=== PATIENT | female | born 2000 | race Caucasian/White ===

== ENCOUNTER 2022-09-24 04:59 | Emergency (ER) | payer OTHER, SELFPAY ==
[2022-09-24 05:02] VITALS: BP 156/88; PULSE 87; RESP 16; TEMP 36.6; O2SAT 100; BMI 33.4
--- NOTE | 2022-09-24 05:47 | EX.ED.VIS.UR ---
HPI HPI - URI History of Present Illness Chief Complaint: Cold Sx Detail of Chief Complaint: Right earache. Informant: patient Onset/Context/Timing Onset: Days Context: Gradual Onset Timing: Continuous Current Severity: Mild Maximum Severity: Mild Associated Symptoms Associated Symptoms: Negative for Diarrhea, Shortness of Breath, Chest Pain or Nonproductive cough Narrative Narrative: 22-year-old female no [place]best[place] medical or surgical history. Has had right earache since Saturday. She was seen by her primary care physician Dr. Nobles who started her on amoxicillin. She 69 took the amoxicillin she thought her right side of her face was swelling so she stopped taking it. She denies any rash or itching. Still having right ear pain. No fever. No shortness of breath. No significant cough. Prior similar symptoms: No Recent Illness/Hospitalization: No ROS ROS ED ROS Narrative Right ear ache. Review of Systems ROS Unobtainable: Denies due to encephalopathy Constitutional Constitutional ED: Denies chills or fever(s) Eyes Eyes: Denies blurry vision ENT ENT ED: Reports ear pain, rhinorrhea and sore throat Cardiovascular Cardiovascular: Denies chest pain Respiratory/Chest Respiratory/Chest: Denies cough or dyspnea Gastrointestinal Gastrointestinal: Denies abdominal pain Genitourinary Genitourinary ED: Denies dysuria or hematuria Musculoskeletal Musculoskeletal: Denies arthralgias Integumentary Denies abscess Neurologic Neurologic: Denies headache(s) Psychiatric Psychiatric: Denies anxiety Endocrine Endocrinology: Denies cold intolerance Hematologic/Lymphatic Hematologic/Lymphatic: Denies easy bleeding Allergic/Immunologic Allergic/Immunologic ED: Denies mouth swelling or tongue swelling PFSH PFSH Medical History no medical history no medical history Home Medications azithromycin 250 mg tablet (Zithromax) 250 mg PO DAILY 4 days #4 tabs 09/24/22 [Rx Last Taken Unknown] Allergy/AdvReac Type Severity Reaction Status Date / Time amoxicillin Allergy Swelling Verified 09/24/22 05:01 diphenhydramine AdvReac Rash Verified 09/24/22 05:01 [From Benadryl] Surgical History no surgical history no surgical history Social History Smoking Status: Never smoker EXAM Physical Exam Narrative Exam Narrative: 19-year-old female no acute distress. Vital signs stable afebrile. Pulse ox 100% on room air no signs hypoxia. She does not look septic toxic or dehydrated. H EENT exam left TM normal. Posterior pharynx normal. No redness. No exudate. No trouble swallowing or breathing. Right TM erythematous dull with fluid behind the eardrum. Canal unremarkable. Eustachian tube tenderness. No anterior or posterior lymphadenopathy. Trachea midline. Lungs clear. Heart regular rhythm. Abdomen soft nontender. Otherwise exam unremarkable. Well-appearing. Const Vital Signs: 09/24/22 05:02 09/24/22 05:04 Temperature 97.8 F Temperature Source Temporal Pulse Rate 87 Respiratory Rate 16 Respiratory Effort Normal Respiratory Pattern Normal Blood Pressure 156/88 H Blood Pressure Mean 110 Pulse Ox 100 Oxygen Delivery Method Room Air Positive well nourished and well developed; Negative for cachectic or contractures General Appearance ED: well developed and NAD; Negative for cachectic, contractures, cyanotic, diaphoretic or pallor Nutritional Appearance: Negative for cachectic HEENT Reports moist mucous membranes; Denies dry mucous membranes HEENT Narrative: Right TM dull, red with fluid behind it. Canal normal. normocephalic and atraumatic; Negative for scalp tenderness Face and Sinus: Negative for sinus tenderness, maxillary instability or facial tenderness Mouth ED: No dry mucous membranes Mouth: No dry mucous membranes Teeth and Gingiva: Negative for caries Throat: posterior oropharynx normal; Negative for tonsils abnormal or posterior oropharynx abnormal Eyes PERRL and EOMs intact bilaterally General Eye ED: Negative for pale conjunctiva or scleral icterus Neck no lymphadenopathy, supple, no meningeal signs and no JVD General: Negative for anterior neck swelling or lymphadenopathy Resp normal respiratory effort and clear to auscultation bilaterally Effort and Inspection: Negative for retractions Auscultation: Negative for rales, rhonchi or wheezes Cardio S1 normal heart sound, S2 normal heart sound and no murmurs Rate: regular rate Rhythm: regular rhythm GI non-tender, non-distended and no masses Inspection: Negative for abdominal distention Auscultation: normoactive bowel sounds Palpation: soft; Negative for tender or guarding Back/Spine no CVA tenderness and normal ROM General Back: Negative for CVA tenderness Cervical Spine: Negative for cervical spine tenderness Thoracic Spine / Upper Back: Negative for thoracic spinal tenderness Lumbar Spine / Lower Back: Negative for lumbar spinal tenderness Sacrum: Negative for tenderness Extremity normal to inspection and full ROM General Extremety ED: Negative for cyanosis or tenderness General Extremity: Negative for cyanosis Neuro oriented x3 and CN's II-XII intact bilaterally Sensorium / Orientation: alert, oriented to person, oriented to place and oriented to time; Negative for orientation impaired, lethargic or stuporous Motor Exam: strength 5/5 throughout; Negative for general weakness Psych mental status grossly normal Appearance: Negative for other Attitude: No agitated Mood & Affect: Negative for depressed, anxious or tearful Skin General Skin Exam: Negative for jaundice or pallor Lesions: no lesions Rashes: no rashes Trauma: Negative for abrasion or laceration MDM MDM MDM Narrative Medical decision making narrative: 22-year-old with right otitis media thinks she may have had a reaction with facial swelling to amoxicillin so she stopped taking it. She will be started on Zithromax first dose given here 500 mg p.o. and 1 daily starting on Saturday. Follow-up with not improving. History & Record Review Discussion w/independent historian: Patient and Significant other Discharge Plan Triage Chief Complaint: Cold Sx ED Provider: Boy Gerard Dx/Rx/DC Orders Clinical Impression: Acute right otitis media Instructions: ED Otitis Media Antibiotic ... Prescriptions: New azithromycin [Zithromax] 250 mg tablet 250 mg PO DAILY 4 Days Qty: 4 0RF Rx Instructions: start on day 2 of therapy Primary Care Provider: Edward Nobles Referrals: Edward Nobles DO [Primary Care Provider] - 1 Week if not improving Activity Restrictions/Additional Instructions: Stop the amoxicillin in case you have an allergy to it. Motrin and Tylenol for pain The antibiotic Zithromax 1 pill a day starting on Saturday for 4 more days. First dose given here in the ER. Follow-up with your doctor if not improving. Disposition Disposition: Home, Self Care
[2022-09-24] MEDS: Azithromycin 250 MG Tablet 500 MG PO (05:51)
== END 2022-09-24 06:07 | disposition home or self-care (01) ==
PROVIDERS: Emergency Provider Emergency Medicine; PCP Family Medicine; Visit Provider Emergency Medicine
DX: H66.91 Otitis media, unspecified, right ear (principal)
CPT/HCPCS: 99283

== ENCOUNTER → 2023-01-16 | Outpatient (CLI) | payer SELFPAY ==
[2023-01-16 19:13] LABS: Hematocrit 39.6 % (37-47); Hemoglobin 12.9 g/dL (12.0-15.0); Mean Corp Hgb Conc 32.6 g/dL (32-36); Mean Corpuscular Hgb 27.7 pg (27.0-32.0); Mean Corpuscular Volume 85.2 fL (81-99); Mean Platelet Vol. 9.5 fl (6.2-12.0); Platelet Count 253 K/mm3 (150-450); RBC Distribution Width CV 11.9 % (11.6-14.6); RBC Distribution Width SD 36.7 fl (35.1-43.9); Red Blood Count 4.65 M/mm3 (4.2-5.4); White Blood Count 6.9 K/mm3 (4.4-11.0)
[2023-01-16 19:33] LABS: ALB/GLOB Ratio 0.9 RATIO (0.9-2.4); AST(SGOT) 35 U/L (15-37); Alanine Aminotransfer ALT/SGPT 71 U/L (13-56); Albumin, Serum 3.8 g/dL (3.2-5.0); Alkaline Phosphatase 61 U/L (45-117); Anion Gap 5 (5-15); BUN 9 mg/dL (7-18); BUN/Creat Ratio 12.3 RATIO (10-20); Calcium,Total 9.3 mg/dL (8.5-10.1); Chloride 105 mmol/L (98-107); Creatinine, Serum 0.73 mg/dL (0.55-1.02); EST Glomerular Filtration Rate 104 mL/min (>60); Est Glom Filt Rate - Afr Amer 126 mL/min (>60); Globulin 4.1 g/dL (2.2-4.2); Glucose 96 mg/dL (74-106); Potassium 4.2 mmol/L (3.5-5.1); Protein, Total 7.9 g/dL (6.4-8.2); Sodium Level 137 mmol/L (136-145)
== END | disposition home or self-care (01) ==
LOC: LAB 18:48
PROVIDERS: PCP Family Medicine; Visit Provider Family Medicine
DX: R10.30 Lower abdominal pain, unspecified (principal)
CPT/HCPCS: 36415; 80053; 85027; 86140

== ENCOUNTER → 2023-01-31 | Outpatient (CLI) | payer SELFPAY ==
--- NOTE | 2023-01-31 08:24 | CT_ITS ---
STUDY: CT ABDOMEN AND PELVIS WITH CONTRAST REASON FOR EXAM: Female, 22 years old. R ADENOMA MASS ON US. Abnormal liver function tests. RADIATION DOSAGE (If Supplied By Facility): CTDIvol = ( 14.93 ) mGy, DLP = ( 1150.26 ) mGycm TECHNIQUE: Transaxial images were obtained from the dome of the diaphragm to the symphysis pubis without oral contrast. Oral and amp; IV Readi-CAT and amp; 100mL Isovue-300 was administered. Sagittal and coronal images were reconstructed. Individualized dose optimization techniques were used for this CT. COMPARISON: None. FINDINGS: The visualized lung bases are unremarkable. The visualized portions of the heart are within normal limits. Normal liver. Normal gallbladder and extrahepatic biliary system. Normal spleen. Normal pancreas. Normal bilateral adrenal glands. Normal right kidney. Normal left kidney. Normal visualized stomach. Normal small intestine. Normal colon. The appendix is visualized and appears normal. Normal abdominal aorta. Normal inferior vena cava. Normal retroperitoneum. Normal urinary bladder. There is a 3.7 cm x 4.1 cm fat-containing mass in the right adnexa suggestive of a dermoid cyst. Focal calcification is seen along its anterior margin. Normal abdominal wall. Normal osseous structures. CT/Abdomen/Pelvis WITH Contrast IMPRESSION: Findings suggestive of a 3.7 cm x 4.1 cm dermoid in the right adnexa. Electronically Signed: Solis Araiza MD at 11:06 EDT ,
== END | disposition home or self-care (01) ==
LOC: CT 08:01
PROVIDERS: PCP Family Medicine; Referring Provider Family Medicine; Visit Provider Family Medicine
DX: R19.09 Other intra-abdominal and pelvic swelling, mass and lump (principal); R10.30 Lower abdominal pain, unspecified
CPT/HCPCS: 74177; Q9967

== ENCOUNTER → 2023-03-18 | Outpatient (CLI) | payer SELFPAY ==
[2023-03-18 13:31] LABS: T4 Free Direct 0.97 ng/dL (0.76-1.46)
[2023-03-22 06:09] LABS: 17-Hydroxyprogesterone 99 ng/dL (.)
== END | disposition home or self-care (01) ==
LOC: LAB 12:16
PROVIDERS: PCP Family Medicine; Referring Provider Obstetrics & Gynecology; Visit Provider Obstetrics & Gynecology
DX: L68.0 Hirsutism (principal)
CPT/HCPCS: 36415; 82627; 83498; 84439; 82626

== ENCOUNTER 2023-04-04 10:36 | Outpatient (CLI) | payer SELFPAY ==
[2023-04-04 11:06] LABS: Hemoglobin 13.7 g/dL (12.0-15.0); Mean Corp Hgb Conc 32.6 g/dL (32-36); Mean Corpuscular Hgb 27.7 pg (27.0-32.0); Mean Platelet Vol. 9.2 fl (6.2-12.0); Platelet Count 348 K/mm3 (150-450); RBC Distribution Width SD 37.2 fl (35.1-43.9); Red Blood Count 4.94 M/mm3 (4.2-5.4); White Blood Count 7.1 K/mm3 (4.4-11.0)
== END 2023-04-04 23:59 | disposition home or self-care (01) ==
LOC: PAVLAB 10:37
PROVIDERS: PCP Family Medicine; Referring Provider Obstetrics & Gynecology; Visit Provider Obstetrics & Gynecology
DX: Z01.818 Encounter for other preprocedural examination (principal)
CPT/HCPCS: 36415; 85027; 86850; 86900; 86901

== ENCOUNTER 2023-05-28 09:35 | Day surgery (SDC) | payer SELFPAY ==
--- NOTE | 2023-05-26 10:40 | CYST_PTH ---
PATHOLOGY RESULTS PATIENT: BENSON PALACIOS LOC: [facility] U#:[id number] AGE/SX: ROOM: RE05/28/[address]: Dr. Beatrice Hi MD : 2000 BED: DIS: 05/28/2023 SPEC #: [id number] RECD: 05/28/23 13:46 STATUS: SUSAN BUSTILLO #: [id number] MUSTAPHA: 05/26/23 10:[address]: Beatrice Hi DEPT: SURGICAL PATHOLOGY RECD BY: Nena Guillen ENTERED: 05/28/23 13:46 SP TYPE: Cyst OTHR DR: Dr. Pantera Villela, Tissues: CYST Procedures: Surgery Specimen Level V HEADER OPERATION: Laparoscopic ovarian cystectomy PRE-OP DIAGNOSIS: Dermoid cyst, polycystic ovarian syndrome TISSUE SUBMITTED: Right ovarian cyst MICROSCOPIC DIAGNOSIS Right ovarian cyst, cystectomy: Mature cystic teratoma (dermoid cyst). AM:kendall 05/29/2023 MICROSCOPIC DESCRIPTION Slides are reviewed. GROSS DESCRIPTION Received in fixative is one container labeled with the patient's name and designated right ovarian cyst. The specimen consists of a previously, partially ruptured cyst measuring 4.5 x 2.5 x 1.5 cm and weighs 7.1 gm. The outer surface is smooth. The cyst is filled with multiple hair. The cyst wall measures 0.1 to 0.3 cm in thickness. No area of bone formation is noted. Wind Turbine Electrical Engineer sections are submitted in three cassettes. / SJ:kendall 05/28/2023 TC:1 CPT: 16486
[2023-05-28] VITALS (8 sets, daily range): BP systolic 108–145; BP diastolic 65–85; PULSE 74–118; RESP 16; TEMP 36.3–37.1; O2SAT 92–100; BMI 33.2
[2023-05-28] MEDS: Lactated Ringers 1,000 ML 15 ML IV (09:58)
[2023-05-28 10:06] LABS: Internal QC Validated? YES +Cl - CLEAR BKGD; Pregnancy, Urine Negative Negative
--- NOTE | 2023-05-28 11:12 | HP.PCM_ITS ---
History and Physical Date of Admission: 05/28/23 Intake Vital Signs 03/18/2311:50 04/04/2309:38 04/04/2309:38 Height 5 ft 9 in 5 ft 9 in 5 ft 9 in Weight: 226 lb BMI 33.3 BP 138/77 H Intake Visit Reasons: right ovarian cystectomy Customer Equipment Engineer Required: No Is patient in pain?: No Allergies amoxicillin Allergy (Verified 04/04/23 09:38) throat swellingdiphenhydramine [From Benadryl] Adverse Reaction (Verified 04/04/23 09:38) Rash Medications NK 03/29/23 [History Confirmed 04/04/23] Is last menstrual period known: Yes Post menopausal: No Patient : No : No [facility] Medical History (Updated 04/04/23 @ 12:[address] Beatrice Hi MD) Anxiety and depression Chest pain Migraine headache Non-smoker Wears contact lenses Wears glasses Social History (Updated 03/18/23 @ 11:50 by Deandra Manzano) Smoking Status: Never smoker alcohol intake: never substance use type: does not use caffeine: No what type of physical activity do you participate in: none seatbelt use: always do you feel safe at home: Yes additional social history: - Rd HPI right ovarian cystectomy Details: BENSON PALACIOS is a 22 year old who presents for preop has 4 cm dermoid right ovarian cyst planning removal Female Reproductive History Menopausal Symptoms: Yes night sweats History 0 Elective abortions Hx Para Spontaneous abortions Hx # Term Pregnancies Ectopic pregnancies Hx # Pregnancies Multiple births # of living children ROS Const Constitutional: Reports night sweats; Denies fatigue, weight gain or weight loss ENT ENT: Reports system reviewed and no additional complaints, except as documented Cardio Card: Denies chest pain Resp Resp: Reports cough (daily cough); Denies dyspnea GI GI: Reports as per HPI, abdominal pain and nausea; Denies constipation or vomiting : Denies nipple discharge, urinary frequency, urinary incontinence, urinary hesitancy, urinary urgency, vaginal discharge, vaginal dryness, vaginal odor or vaginal pruritus Musc Musc: Denies arthralgias, back pain or muscle weakness Skin Skin/Breast: Denies alopecia, change in hair, dry skin, breast mass, breast pain, breast skin changes or nipple discharge Neuro Neuro: Reports system reviewed and no additional complaints, except as documented Psych Psych: Reports system reviewed and no additional complaints, except as documented Endo Endo: Reports cold intolerance and polydipsia; Denies excessive sweating or heat intolerance Slick/Lymph Hematologic/Lymphatic: Denies easy bleeding, Denies easy bruising and Denies lymphadenopathy Exam Const General: cooperative, healthy appearing, comfortable and no acute distress Orientation: alert HENMT Head: normal to inspection and normocephalic Ears: hearing grossly normal bilaterally and external ears normal Nose: external nose normal and nares normal Face and sinus: normal facial exam Neck Neck: normal visual inspection and no lymphadenopathy Thyroid: thyroid normal Chest Chest palpation & inspection: normal inspection of the chest Resp Effort & Inspection: normal respiratory effort Auscultation: clear to auscultation bilaterally Cardio Rate: regular rate Rhythm: regular rhythm Heart Sounds: S1 normal and S2 normal GI Inspection: normal to inspection and non-distended Palpation: soft and no hepatosplenomegaly Musc Other: gross motor intact no deficits, full bilateral strength Skin General: no rashes or lesions noted Neuro General: patient alert, patient awake, moves all extremities and no focal motor deficits Motor: muscle tone normal throughout Extrem General: normal to inspection and no pedal edema Psych Appearance: grossly normal Mental Status: mental status grossly normal Affect: normal affect Speech and Movement: speech and movement normal Coding Level of Care Code No Charge Diagnoses Dermoid cyst D36.9 Polycystic ovarian syndrome E28.2 Assessment and Plan Assessment and Plan (1) Dermoid cyst: Status: Acute Comment: plan laparoscopic ovarian cystectomy (2) Polycystic ovarian syndrome: Status: Acute Comment: desired exp management, weight reduction, natural support Plan After discussing the patient's diagnosis and treatment plan options, patient wishes to proceed with surgical management. I have discussed with the patient the risks, benefits, and alternatives of the procedure which include but are not limited to risks of anesthesia, bleeding, infection, possible damage to bowel, bladder, or surrounding vasculature which could lead to additional surgery to evaluate any complications. Patient agrees to procedure and wishes to proceed. ACOG/uptodate references given for additional information regarding procedure. 04/04/23 1221 <Electronically signed by Beatrice Hi MD> Date Beatrice Garcia Signature: Date (if applicable) CC: ~ UPDATE- I have seen the patient and performed any clinically relevant updates to the history and physical exam. Beatrice Hi MD
[2023-05-28] MEDS: Bupivacaine 0.25% 30 ML Vial (12:15)
--- NOTE | 2023-05-28 12:27 | DCINST_ITS ---
Discharge Instructions Diet Discharge Diet: No restrictions Activity Discharge Activity: Return to Normal Activity, May Not Drive (for 2 weeks or while taking narcotic pain meds.), May Shower and May Take a Tub Bath (in 7 days) May resume sexual activity in: 1 week Weight Bearing Status: Full weight bearing Dressing / Incision Call your doctor if your incision/area has: Continuous Slow Oozing, Sudden Increased Bleeding, Increased Pain/ Swelling, Increased Redness and Foul Smelling Discharge Call your doctor if you observe: Fever of 101 or Higher, Using more than 1 pad per hour, Shortness of breath, Chest pain and Uncontrolled pain Suture Line Care: Avoid Pulling/Pushing and Avoid Pinching/Bending Remove Dressing in: 1 week (if present) Cleanse incision/area with: Soap & Water and Keep Dressing Clean & Dry Follow Up Care When: Call to make an appointment with your doctor for a fu/incision check in 1- 2 weeks. Test Results: Test results from this visit will be discussed in further detail at your follow- up appointment, if applicable. Discharge Plan Admission Attending Provider: Beatrice Hi Primary Care Provider: Pantera Villela Discharge Orders/Prescriptions Prescriptions: New oxycodone-acetaminophen [Percocet] 5-325 mg tablet 1 tab PO Q6H PRN (Reason: pain) 7 Days Qty: 10 0RF naproxen [naproxen] 500 mg tablet 500 mg PO BID PRN PRN (Reason: Pain) Qty: 30 1RF Referrals / Follow Up: Pantera Villela DO [Primary Care Provider] - Disposition Disposition (needs filled in before D/C Order can be placed): Home, Self Care
--- NOTE | 2023-05-28 12:27 | OP.PCM_ITS ---
Problems Associated Problem List Diagnoses (1) S/P ovarian cystectomy: (2) Polycystic ovarian syndrome: (3) Dermoid cyst: Report of Operation Date of Procedure: 05/28/23 Pre-Operative Diagnosis: see problem list Post-Operative Diagnosis: same Surgery/Procedure Performed:: laparoscopic right ovarian cystectomy Description of Surgical Findings:: right enlarged ovary with hair and sebaceous material Surgeon: Beatrice Hi security field supervisor: Austin Goyal Type of Anesthesia: General and Local Special Medications: floseal Specimen's removed: ovarian cyst Drains: none Estimated Blood Loss (mL): 50 Fluids Replaced: crystalloid Description of Procedure: Patient was taken in the operating room and was placed under general anesthesia was prepped and draped in normal sterile fashion in the dorsal lithotomy position. Bladder was drained of clear urine and SCDs were on preoperatively. Uterus was sounded and a uterine manipulator was placed after dilating. Attention was then paid to the abdominal portion of the procedure and the umbilicus was elevated with towel clamps and injected with Marcaine and after a 5mm incision was made and the Veress needle was entered into the abdomen confirmed to be intra-abdominal with a low opening pressure of less than 5 mmHg. Abdomen was insufflated with CO2 gas and a 5 mm optical trocar was placed under direct visualization. A right and left lower quadrant 5 mm ports were placed under direct visualization. Right ovary was noted to be enlarged with a cyst noted which was incised across with the monopolar scissors and sebaceous appearing material noted. The cyst was teased out from the underlying normal ovarian tissue without complication. The entire cyst wall and contents were removed and a 5 mm port bag through the left lower quadrant after enlarging the incision without complication. The right ovary was then noted to be within normal limits and the base cauterized for hemostasis and Floseal placed over the base of the ovary for hemostasis. The LLQ fascial incision was closed using the Vicente Laboy and an 0 Vicryl. Liver and upper abdomen were visualized notably within normal limits and no other gross abnormalities were seen in the abdomen. All instruments removed from the abdomen after gas was desufflated. Port sites were closed with 3-0 Monocryl Steri's and op sites were applied. All instruments removed from the vagina and patient was awoken and taken recovery in stable condition. Grafts/Implants Used: none Complications none Admit VTE Documentation VTE Present on Admission: No VTE Mechan Device Prophylaxis: SCD's Multi Select Codes Urinary/Genital Urinary/Genital CPT Codes: 12072 Laproscopic ablation endometriosis
[2023-05-28] MEDS: Oxycodone/Apap 5/325 Tablet PO (13:58)
== END 2023-05-28 16:00 | disposition home or self-care (01) ==
LOC: SDC 09:36 → AC 09:42
PROVIDERS: PCP Family Medicine; Referring Provider Obstetrics & Gynecology; Visit Provider Obstetrics & Gynecology
PROC: (CPT 58720; principal; 2023-05-28 10:30)
DX: D27.0 Benign neoplasm of right ovary (principal); E28.2 Polycystic ovarian syndrome; N95.1 Menopausal and female climacteric states
CPT/HCPCS: 58662; 00840; 81025; 86850; 86900; 86901; 88304; 88307; J7120; J2405

== ENCOUNTER → 2024-01-01 | Outpatient (CLI) | payer SELFPAY ==
[2024-01-01 15:54] LABS: hCG Titer Quant., Serum 15067 mIU/mL (1-3)
== END | disposition home or self-care (01) ==
LOC: LAB 14:04
PROVIDERS: PCP Family Medicine; Referring Provider Obstetrics & Gynecology; Visit Provider Obstetrics & Gynecology
DX: O20.9 Hemorrhage in early pregnancy, unspecified (principal); Z3A.00 Weeks of gestation of pregnancy not specified
CPT/HCPCS: 36415; 84702

== ENCOUNTER → 2024-01-17 | Outpatient (CLI) | payer SELFPAY ==
[2024-01-17 16:16] LABS: Absolute Lymphocyte Count 2.24 X10^3/uL (0.83-4.51); Absolute Neutrophil Count 5.9 X10^3/uL (2.0-7.7); Basophil# 0.02 X10^3/uL; Basophil% 0.2 % (0-1); Eosinophil# 0.08 X10^3/uL; Eosinophils% 0.9 % (0-5); Hemoglobin 12.3 g/dL (12.0-15.0); Lymphocyte # 2.24 X10^3/ul (0.83-4.51); Lymphocyte % 25.1 % (19-41); Mean Corp Hgb Conc 32.4 g/dL (32-36); Mean Corpuscular Hgb 27.3 pg (27.0-32.0); Mean Corpuscular Volume 84.3 fL (81-99); Mean Platelet Vol. 9.5 fl (6.2-12.0); Monocyte# 0.62 X10^3/uL; NRBC Flagged by Analyzer 0 % (0-5); Neutrophil # 5.94 X10^3/uL (2.7-7.7); Neutrophil % 66.6 % (47-70); Platelet Count 284 K/mm3 (150-450); RBC Distribution Width CV 11.9 % (11.6-14.6); RBC Distribution Width SD 36.3 fl (35.1-43.9); Red Blood Count 4.51 M/mm3 (4.2-5.4); White Blood Count 8.9 K/mm3 (4.4-11.0)
[2024-01-17 17:12] LABS: HIV - WCH Non-Reactive (Nonreactive); Hepatitis B Surface Antigen Non-Reactive (Nonreactive); Hepatitis C Antibody Non-Reactive (Nonreactive); Rubella IgG Reactive (Nonreactive); Syphilis Antibodies Non-reactive
[2024-01-17 17:30] LABS: Hemoglobin A1c 5.1 % (3.8-5.6)
[2024-01-20 20:07] LABS: Chlamydia By Nucleic Acid AMP Negative (Negative); Gonococcus By Nucleic Acid AMP Negative (Negative)
== END | disposition home or self-care (01) ==
PROVIDERS: PCP Family Medicine; Referring Provider Obstetrics & Gynecology; Visit Provider Obstetrics & Gynecology
DX: O09.90 Supervision of high risk pregnancy, unspecified, unspecified trimester (principal); Z3A.00 Weeks of gestation of pregnancy not specified
CPT/HCPCS: 36415; 83036; 85025; 86703; 86762; 86780; 86803; 86850; 86900; 86901; 87086; 87088; 87186; 87340; 87491; 87591

== ENCOUNTER 2024-07-05 11:39 | Inpatient (IN) | payer SELFPAY ==
[2024-07-04 16:58] VITALS: BMI 31.6
[2024-07-04] MEDS: Lactated Ringers 1,000 ML 999 ML IV (17:15)
[2024-07-04 17:16] VITALS: BP 130/64; PULSE 115
[2024-07-04 17:40] LABS: Hematocrit 28.6 % (37-47); Hemoglobin 9.5 g/dL (12.0-15.0); Mean Corp Hgb Conc 33.2 g/dL (32-36); Mean Corpuscular Hgb 27.5 pg (27.0-32.0); Mean Corpuscular Volume 82.9 fL (81-99); Mean Platelet Vol. 9.7 fl (6.2-12.0); Platelet Count 246 K/mm3 (150-450); RBC Distribution Width SD 42.4 fl (35.1-43.9); Red Blood Count 3.45 M/mm3 (4.2-5.4); White Blood Count 16.1 K/mm3 (4.4-11.0)
[2024-07-04 17:47] LABS: Color, Urine Yellow (Yellow); Glucose, Dipstick Normal (Normal); Leukocyte Esterase-Dipstick 500 /ul (Negative); Nitrite-Dipstick Negative (Negative); Occult Blood-Urine 50 /ul (Negative); Protein-Dipstick 100 mg/dl (Negative); Specific Gravity, Urine 1.005 (1.002-1.030); Urine Bilirubin Dipstick Negative (Negative); Urine Clarity Sl. Cloudy (Clear); Urine Urobilinogen Normal (Normal); Urine pH 6.5 (5.0 - 8.0)
[2024-07-04 17:52] LABS: Ketone-Dipstick 150 mg/dl (Negative)
[2024-07-04 17:55] LABS: Protein, Urine (Random) 97.1 mg/dL (<11.9); Protein:Creat Ratio 1006 mg/g CRE (0-200)
[2024-07-04 18:01] LABS: AST(SGOT) 12 U/L (15-37); Alanine Aminotransfer ALT/SGPT 15 U/L (13-56); Creatinine, Serum 0.67 mg/dL (0.55-1.02); EST Glomerular Filtration Rate 114 mL/min (>60); Est Glom Filt Rate - Afr Amer 137 mL/min (>60); Estimated Creatinine Clearance 149.25 ml/min; Uric Acid 4.5 mg/dL (2.6-6.0)
[2024-07-04] MEDS: Lactated Ringers 1,000 ML 125 ML IV (18:57)
[2024-07-04 19:21] VITALS: RESP 16; TEMP 37.2
[2024-07-04 19:27] VITALS: BP 118/62; PULSE 114; PULSE 116; O2SAT 97
[2024-07-04] MEDS: Aztreonam 2 GM in 0.9% Normal Saline (100mL MB+) 100 ML IV (19:47)
--- NOTE | 2024-07-04 19:47 | PCM.HP.OB ---
HPI - General General Date of Admission: 07/04/24 Date of Service: 07/04/24 Chief Complaint: fever, vomiting, back pain, 32 weeks . NO- DOC HPI Narrative BENSON SALMON, is a 24 y/o @ 32 weeks 3 days (by LMP and confirmed by 7 week ultrasound) who presents to L&D via her community development aide for the complaint of ongoing fevers, chills, nausea and vomiting and the complaint of right sided back pain. She was seen 1 or 2 times with our office and was dismissed for non-compliance with co-care. She is planning a home . [facility] Medical History (Updated 07/04/24 @ 19:[address] Nohemy Avitia, DO) UTI (urinary tract infection) in in first trimester Obesity affecting Family history of Down syndrome Supervision of high-risk Wears contact lenses Wears glasses Migraine headache Non-smoker Chest pain Anxiety and depression Home Medications ?Medication ?Instructions ?Recorded ?Last Taken ?Type docosahexaenoic acid 200 mg mg PO 01/01/24 Unknown History capsule ( DHA) mecobalamin (vitamin B12) 500 mcg mcg PO 01/01/24 Unknown History chewable tablet omega-3 fatty acids 1,000 mg 1,000 mg PO DAILY 01/01/24 Unknown History capsule vitamin D3 125 mcg (5,000 cap PO 01/01/24 Unknown History unit)-vitamin K2 100 mcg capsule cyanocobalamin-liver extract tablet tab PO 01/17/24 Unknown History fosfomycin tromethamine 3 gram 3 g PO ONCE #1 ea 01/20/24 Unknown Rx oral packet Allergy/AdvReac Type Severity Reaction Status Date / Time amoxicillin Allergy throat Verified 01/17/24 15:03 swelling diphenhydramine (From AdvReac Rash Verified 01/17/24 15:03 Benadryl) Surgical History (Updated 01/17/24 @ 15:[address] Beatrice Hi MD) History of excision of dermoid cyst S/P ovarian cystectomy Social History Smoking Status: Never smoker alcohol intake: never substance use type: does not use caffeine: No what type of physical activity do you participate in: none seatbelt use: always do you feel safe at home: Yes additional social history: - Rd History 1 Elective abortions Hx Para 0 Spontaneous abortions Hx # Term Pregnancies Ectopic pregnancies Hx # Pregnancies Multiple births # of living children ROS Constitutional Constitutional: Reports fatigue, fever(s) and headache(s); Denies change in weight, poor appetite or weakness Eyes Eyes: Denies blurry vision, change in vision, seeing flashes or spots in vision ENT HEENT: Reports headache(s); Denies dizziness, loss taste/smell or sore throat Cardiovascular Cardiovascular: Denies chest pain, dizziness, dyspnea, irregular heart rhythm, leg edema, palpitations, rapid heart rate or vomiting Respiratory/Chest Respiratory/Chest: Denies chest tightness, cough, dyspnea or breast pain Gastrointestinal Gastrointestinal: Reports anorexia, nausea and vomiting; Denies abdominal pain, change in stool character, constipation, cramping, diarrhea, hemorrhoids or weight changes Genitourinary Genitourinary: Reports urinary frequency and urinary urgency; Denies genital lesions or genital pain Musculoskeletal Musculoskeletal: Reports other Details: back pain wrapping around to right lower quadrant ; Denies difficulty walking, joint pain, limited range of motion, muscle cramps or numbness Integumentary Integumentary: Denies lesions or unusual bruising Neurologic Neurologic: Denies abnormal movements, abnormal speech, dizziness, numbness, seizure-like activity or syncope Psychiatric Psychiatric: Denies anxiety, behavioral changes, change in appetite, change in libido, cognitive impairment, confusion, depression, difficulty concentrating, hallucinations or suicidal thoughts Endocrine Endocrinology: Denies excessive sweating, polydipsia or polyuria Hematologic/Lymphatic Hematologic/Lymphatic: Denies easy bleeding, easy bruising or lymphadenopathy Allergic/Immunologic Allergic/Immunologic: Denies itchy eyes, lip swelling, seasonal rhinorrhea, rhinitis, throat swelling, tongue swelling, eczemia, wheezing or asthma Vital Signs Vital Signs Vital Signs: 07/04/24 17:16 07/04/24 17:16 07/04/24 19:21 Temperature Temperature Source Oral Pulse Rate 115 H Respiratory Rate Blood Pressure 130/64 H BP Systolic 130 BP Diastolic 64 Pulse Ox 07/04/24 19:21 07/04/24 19:21 07/04/24 19:27 Temperature 98.9 F Temperature Source Pulse Rate Respiratory Rate 16 Blood Pressure 118/62 BP Systolic 118 BP Diastolic 62 Pulse Ox 07/04/24 19:27 07/04/24 19:27 07/04/24 19:27 Temperature Temperature Source Pulse Rate 114 H 116 H Respiratory Rate Blood Pressure BP Systolic BP Diastolic Pulse Ox 97 Weight Weight: 202 lb 4 oz Body Mass Index (BMI) 31.6 Physical Exam Const alert, oriented x3, no apparent distress and healthy appearing General Appearance: cooperative; Negative for anxious HEENT normocephalic Face and Sinus: normal facial exam Eyes EOMs intact bilaterally and no scleral icterus General Eye: normal appearance of both eyes Neck full ROM and supple Lymph Lymphatic: no lymphadenopathy noted Chest Chest: abnormal inspection of the chest Resp normal respiratory effort Effort and Inspection: able to speak in complete sentences Cardio regular rate GI soft to palpation and non-tender Inspection: gravid Palpation: soft; Negative for tender Bladder / Kidney Exam: CVA tenderness right Back/Spine no CVA tenderness Extremity normal to inspection, full ROM and no clubbing, cyanosis or edema General Extremity: Negative for calf tenderness or edema Skin Lesions: no lesions Rashes: no rashes Psych mental status grossly normal Labs Labs Labs: Blood Type O POSITIVE Antibody Screen NEGATIVE Hct 28.6 % (37-47) L Hgb 9.5 g/dL (12.0-15.0) L Syphilis Total Ab Non-reactive Rubella IgG Antibody Reactive (Nonreactive) Hep Bs Antigen Non-Reactive (Nonreactive) Hepatitis C Antibody Non-Reactive (Nonreactive) Chlamydia DNA (TAJ) Negative (Negative) N.gonorrhoeae DNA (TAJ) Negative (Negative) HIV 1&2 Antibody Non-Reactive (Nonreactive) Assessment & Plan (1) Pyelonephritis: (2) Right lower quadrant pain: (3) Costovertebral angle tenderness: (4) : COMMENT: carrier and genetic screening declined. patient dismissed from [facility] for non-compliance. Seeing relay engineer and planning home . PLAN: Plan patient is allergic to ampicillin and sounds anaphylactic. states when was given this medication in the past she developed difficulty breathing and sore throat. suspect chorioamnionitis based on hematuria, proteinuria, low grade fever at home and elevated white count. She also has +CVA tenderness and RLQ pain. - plan is to start aztreonam 2 grams q 12 hrs + zofran + tyelnol + oxycodone + IV fluids as needed for support - repeat labs in the morning -ordering renal us and rlq ultrasound to r/o kidney stone, cyst on the ovary, or appendicitis (least expected) -q shift NSTs are appropriate at this time due to reassuring NST and lack of contractions . Charges/Coding Visit Charges Inpatient E&M: 06324 Init Hosp L3
[2024-07-04 21:28] VITALS: BP 121/70; PULSE 116; RESP 16; TEMP 36.9
[2024-07-05] VITALS (13 sets, daily range): BP systolic 114–130; BP diastolic 52–67; PULSE 83–139; RESP 16–20; TEMP 36.4–39; O2SAT 95–98
[2024-07-05] MEDS: Acetaminophen 500 MG Tablet 1000 MG PO ×3 (02:03→18:26)
[2024-07-05] MEDS: Lactated Ringers 1,000 ML 125 ML IV ×2 (04:06→14:59)
[2024-07-05 04:21] LABS: Absolute Lymphocyte Count 0.97 X10^3/uL (0.83-4.51); Absolute Neutrophil Count 11.3 X10^3/uL (2.0-7.7); Basophil# 0.02 X10^3/uL; Basophil% 0.1 % (0-1); Hematocrit 26.3 % (37-47); Hemoglobin 8.6 g/dL (12.0-15.0); Lymphocyte # 0.97 X10^3/ul (0.83-4.51); Lymphocyte % 7.1 % (19-41); Mean Corp Hgb Conc 32.7 g/dL (32-36); Mean Corpuscular Hgb 27.2 pg (27.0-32.0); Mean Corpuscular Volume 83.2 fL (81-99); Mean Platelet Vol. 9.7 fl (6.2-12.0); Monocyte# 1.32 X10^3/uL; Monocyte% 9.7 % (0-10); NRBC Flagged by Analyzer 0 % (0-5); Neutrophil # 11.26 X10^3/uL (2.7-7.7); Neutrophil % 82.6 % (47-70); Platelet Count 224 K/mm3 (150-450); RBC Distribution Width SD 42.5 fl (35.1-43.9); Red Blood Count 3.16 M/mm3 (4.2-5.4); White Blood Count 13.6 K/mm3 (4.4-11.0)
[2024-07-05 04:54] LABS: ALB/GLOB Ratio 0.5 RATIO (0.9-2.4); AST(SGOT) 12 U/L (15-37); Alanine Aminotransfer ALT/SGPT 15 U/L (13-56); Alkaline Phosphatase 95 U/L (45-117); Anion Gap 11 (5-15); BUN 6 mg/dL (7-18); BUN/Creat Ratio 9.4 RATIO (10-20); Calcium,Total 8.7 mg/dL (8.5-10.1); Chloride 102 mmol/L (98-107); Creatinine, Serum 0.64 mg/dL (0.55-1.02); EST Glomerular Filtration Rate 121 mL/min (>60); Est Glom Filt Rate - Afr Amer 146 mL/min (>60); Estimated Creatinine Clearance 156.25 ml/min; Globulin 4.3 g/dL (2.2-4.2); Glucose 139 mg/dL (74-106); Potassium 3.1 mmol/L (3.5-5.1); Protein, Total 6.3 g/dL (6.4-8.2); Sodium Level 134 mmol/L (136-145)
--- NOTE | 2024-07-05 07:56 | US_ITS ---
PROCEDURE: KIDNEY AND BLADDER REASON FOR EXAM: Flank pain TECHNIQUE: Bilateral renal ultrasound. COMPARISON: None. FINDINGS: Kidneys are unremarkable with no focal masses. No hydronephrosis. No stones. Bladder is normal. Ureteral jets are not visualized. US/Kidney and Bladder IMPRESSION: No acute sonographic abnormalities. Reading Location: [facility]
--- NOTE | 2024-07-05 08:51 | US_ITS ---
PROCEDURE: PELVIC W/ TRANSVAGINAL REASON FOR EXAM: Ovarian cyst TECHNIQUE: Transabdominal pelvic ultrasound COMPARISON: 02/01/2020. FINDINGS: Limited exam due to patient's gravid status, 32 weeks . Uterus: Not evaluated. Endometrium: Not evaluated. Right ovary: Questionably visualized. The structure measured appears homogeneous echogenic measuring 4.5 x 3.0 x 2.5 cm and may correspond with the known dermoid cyst seen on the prior CT. Left ovary: Nonvisualized due to bowel gas. US/Pelvic w/ Transvaginal IMPRESSION: 1. Limited exam. 2. Questionable visualization of the right ovary. The measured structure appea rs homogeneously echogenic and measures up 4.5 cm, which may correspond patient's known dermoid cyst. 3. Otherwise the ovaries are nonvisualized. Reading Location: [facility]
[2024-07-05] MEDS: Aztreonam 2 GM in 0.9% Normal Saline (100mL MB+) 100 ML IV ×2 (10:13→22:29)
[2024-07-05] MEDS: 0.9% Saline Lock 10 ML Syringe IV ×2 (10:14→10:15)
[2024-07-05] MEDS: Potassium Chloride Oral Tablet 20 MEQ 40 MEQ PO (10:26)
--- NOTE | 2024-07-05 10:35 | PN.OBGYN_ITS ---
Subjective Subjective patient is sitting up in bed. She complains of having shaking chills and her IV site is bothering her. She denies fever currently. She had her ultrasounds this am and results are pending. We discussed her low potassium and hg levels this am and replacements ordered. 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 Objective Data Objective Data Vital Signs: Vital Signs Temp Pulse Resp BP Pulse Ox 97.7 F L 83 16 114/67 97 07/05/24 10:13 07/05/24 08:31 07/05/24 08:31 07/05/24 08:31 07/05/24 04:00 Weight: 202 lb 4 oz Body Mass Index (BMI) 31.6 Intake & Output: Intake and Output for Last 24 Hours 07/03/24 07/04/24 07/05/24 23:59 23:59 23:59 Intake Total 1100 / 1100 1000 / 1000 Output Total 150 / 150 Balance 950 / 950 1000 / 1000 Lab / Micro Data 07/05/24 04:15 07/05/24 04:15 Labs: Laboratory Results - last 24 hr 07/04/24 17:10: Urine Color Yellow, Urine Clarity Sl. Cloudy, Urine pH 6.5, Ur Specific [place] 1.005, Urine Protein 100 H, Urine Glucose (UA) Normal, Urine Ketones 150 A*, Urine Occult Blood 50 H, Urine Nitrite Negative, Urine Bilirubin Negative, Urine Urobilinogen Normal, Ur Leukocyte Esterase 500 H, U Random Total Protein 97.1 H, Urine Creatinine 96.50, Protein/Creatinin Ratio 1006 H 07/04/24 17:20: WBC 16.1 H, RBC 3.45 L, Hgb 9.5 L, Hct 28.6 L, MCV 82.9, MCH 27.5, MCHC 33.2, RDW Std Deviation 42.4, RDW Coeff of Courtney 14.0, Plt Count 246, MPV 9.7, Creatinine 0.67, Estim Creat Clear Calc 149.25, Est GFR (MDRD) Af Amer 137, Est GFR (MDRD) Non-Af 114, Uric Acid 4.5, AST 12 L, ALT 15 07/05/24 04:15: WBC 13.6 H, RBC 3.16 L, Hgb 8.6 L, Hct 26.3 L, MCV 83.2, MCH 27.2, MCHC 32.7, RDW Std Deviation 42.5, RDW Coeff of [place] 14.0, Plt Count 224, MPV 9.7, Immature Gran % (Auto) 0.500, Neut % (Auto) 82.6 H, Lymph % (Auto) 7.1 L, [place] % (Auto) 9.7, Eos % (Auto) 0.0, Baso % (Auto) 0.1, Absolute Neuts (auto) 11.3 H, Absolute Lymphs (auto) 0.97, Nucleated RBC % 0, Sodium 134 L, Potassium 3.1 L, Chloride 102, Carbon Dioxide 21.0, Anion Gap 11, BUN 6 L, Creatinine 0.64, Estim Creat Clear Calc 156.25, Est GFR (MDRD) Af Amer 146, Est GFR (MDRD) Non-Af 121, BUN/Creatinine Ratio 9.4 L, Glucose 139 H, Calcium 8.7, Total Bilirubin 0.60, AST 12 L, ALT 15, Alkaline Phosphatase 95, Total Protein 6.3 L, Albumin 2.0 L, Globulin 4.3 H, Albumin/Globulin Ratio 0.5 L Micro: Microbiology 07/04/24 17:15 Mucosa - Nose SARS-CoV-2, Influenza & RSV (PCR) - Final ROS Constitutional Constitutional: Reports fatigue, fever(s) and headache(s); Denies change in weight, poor appetite or weakness Eyes Eyes: Denies blurry vision, change in vision, seeing flashes or spots in vision ENT HEENT: Reports headache(s); Denies dizziness, loss taste/smell or sore throat Cardiovascular Cardiovascular: Denies chest pain, dizziness, dyspnea, irregular heart rhythm, leg edema, palpitations, rapid heart rate or vomiting Respiratory/Chest Respiratory/Chest: Denies chest tightness, cough, dyspnea or breast pain Gastrointestinal Gastrointestinal: Reports anorexia, nausea and vomiting; Denies abdominal pain, change in stool character, constipation, cramping, diarrhea, hemorrhoids or weight changes Genitourinary Genitourinary: Reports urinary frequency and urinary urgency; Denies genital lesions or genital pain Musculoskeletal Musculoskeletal: Reports other Details: back pain wrapping around to right lower quadrant ; Denies difficulty walking, joint pain, limited range of motion, muscle cramps or numbness Integumentary Integumentary: Denies lesions or unusual bruising Neurologic Neurologic: Denies abnormal movements, abnormal speech, dizziness, numbness, seizure-like activity or syncope Psychiatric Psychiatric: Denies anxiety, behavioral changes, change in appetite, change in libido, cognitive impairment, confusion, depression, difficulty concentrating, hallucinations or suicidal thoughts Endocrine Endocrinology: Denies excessive sweating, polydipsia or polyuria Hematologic/Lymphatic Hematologic/Lymphatic: Denies easy bleeding, easy bruising or lymphadenopathy Allergic/Immunologic Allergic/Immunologic: Denies itchy eyes, lip swelling, seasonal rhinorrhea, rhinitis, throat swelling, tongue swelling, eczemia, wheezing or asthma Physical Exam Const alert, oriented x3, no apparent distress and healthy appearing General Appearance: cooperative; Negative for anxious HEENT normocephalic Eyes EOMs intact bilaterally and no scleral icterus General Eye: normal appearance of both eyes Neck full ROM and supple Lymph Lymphatic: no lymphadenopathy noted Chest Chest: abnormal inspection of the chest Resp normal respiratory effort Effort and Inspection: able to speak in complete sentences Cardio regular rate GI soft to palpation and non-tender Inspection: gravid Palpation: soft; Negative for tender Bladder / Kidney Exam: CVA tenderness right Back/Spine no CVA tenderness Extremity normal to inspection, full ROM and no clubbing, cyanosis or edema General Extremity: Negative for calf tenderness or edema Skin Lesions: no lesions Rashes: no rashes Psych mental status grossly normal Assessment & Plan (1) Pyelonephritis: (2) Right lower quadrant pain: (3) Costovertebral angle tenderness: (4) : COMMENT: carrier and genetic screening declined. patient dismissed from [facility] for non-compliance. Seeing layout worker and planning home . PLAN: Plan patient is allergic to ampicillin and sounds anaphylactic. states when was given this medication in the past she developed difficulty breathing and sore throat. suspect chorioamnionitis based on hematuria, proteinuria, low grade fever at home and elevated white count. She also has +CVA tenderness and RLQ pain. - continue aztreonam 2 grams q 12 hrs + zofran + tyelnol + oxycodone + IV fluids as needed for support - repeat labs this am show that her white count is decreased but her hg is also 8.9 and her potassium is 3.1 - plan for iron infusion and potassium replacement - renal us and rlq ultrasound to r/o kidney stone, cyst on the ovary, or appendicitis (least expected) performed. radiology has informed me that they do not rule out appendicitis on ultrasound due to lack of training at our facility and CT would be needed. At this time I do not think this needed as she seems to be responding to the antibiotics and the diagnosis of pyelonephritis seems to be accurate based on wet read of hydronephrosis on the right. -q shift NSTs are appropriate at this time due to reassuring NST and lack of contractions . Discharge plan is dependent on her ability to remain afebrile for 24 hours and refrain from vomiting. We will also need to wait for sensitivities from culture to know what will be appropriate for oral outpatient treatment.
[2024-07-05] MEDS: Iron Sucrose Complex 200 MG in 0.9% Normal Saline (100mL Bag) 100 ML 220 MG IV (11:13)
[2024-07-06] VITALS (8 sets, daily range): BP systolic 110–127; BP diastolic 50–59; PULSE 93–108; RESP 16–18; TEMP 36.7–36.9; O2SAT 97–100
[2024-07-06] MEDS: Lactated Ringers 1,000 ML 125 ML IV ×2 (01:26→11:23)
[2024-07-06 06:04] LABS: Absolute Lymphocyte Count 1.31 X10^3/uL (0.83-4.51); Absolute Neutrophil Count 6.3 X10^3/uL (2.0-7.7); Basophil# 0.02 X10^3/uL; Basophil% 0.2 % (0-1); Eosinophil# 0.05 X10^3/uL; Eosinophils% 0.6 % (0-5); Hematocrit 25.9 % (37-47); Hemoglobin 8.5 g/dL (12.0-15.0); Lymphocyte # 1.31 X10^3/ul (0.83-4.51); Lymphocyte % 15.5 % (19-41); Mean Corp Hgb Conc 32.8 g/dL (32-36); Mean Corpuscular Hgb 27.6 pg (27.0-32.0); Mean Corpuscular Volume 84.1 fL (81-99); Mean Platelet Vol. 9.6 fl (6.2-12.0); Monocyte# 0.72 X10^3/uL; Monocyte% 8.5 % (0-10); NRBC Flagged by Analyzer 0 % (0-5); Neutrophil # 6.28 X10^3/uL (2.7-7.7); Neutrophil % 74.4 % (47-70); POSITIVE MORPHOLOGY YES; Platelet Count 222 K/mm3 (150-450); RBC Distribution Width SD 43.1 fl (35.1-43.9); Red Blood Count 3.08 M/mm3 (4.2-5.4); White Blood Count 8.5 K/mm3 (4.4-11.0)
[2024-07-06 06:12] LABS: Differential Indicated SCAN CRITERIA MET
[2024-07-06 06:24] LABS: ALB/GLOB Ratio 0.4 RATIO (0.9-2.4); AST(SGOT) 10 U/L (15-37); Alanine Aminotransfer ALT/SGPT 16 U/L (13-56); Albumin, Serum 1.8 g/dL (3.2-5.0); Alkaline Phosphatase 91 U/L (45-117); Anion Gap 9 (5-15); BUN 6 mg/dL (7-18); BUN/Creat Ratio 12.6 RATIO (10-20); Calcium,Total 8.6 mg/dL (8.5-10.1); Chloride 105 mmol/L (98-107); Creatinine, Serum 0.48 mg/dL (0.55-1.02); EST Glomerular Filtration Rate 168 mL/min (>60); Est Glom Filt Rate - Afr Amer 204 mL/min (>60); Estimated Creatinine Clearance 208.33 ml/min; Globulin 4.2 g/dL (2.2-4.2); Glucose 87 mg/dL (74-106); Potassium 3.4 mmol/L (3.5-5.1); Sodium Level 136 mmol/L (136-145)
[2024-07-06 07:18] LABS: Atypical Lymphocyte 1+ %
--- NOTE | 2024-07-06 08:59 | PN.OBGYN_ITS ---
Subjective Subjective Patient in bed resting. Reports still having slight back pain but feels it is from the bed and not the pyelonephritis. Doing much better this morning and is afebrile. WBCs are trending down. Objective Data Objective Data Vital Signs: Vital Signs Temp Pulse Resp BP Pulse Ox O2 Del Method 98.4 F 100 17 113/57 L 100 Room Air 07/06/24 08:09 07/06/24 08:08 07/06/24 08:09 07/06/24 08:08 07/06/24 08:10 07/06/24 05:41 Oxygen Delivery Method Room Air Weight: 202 lb 4 oz Body Mass Index (BMI) 31.6 Intake & Output: Intake and Output for Last 24 Hours 07/04/24 07/05/24 07/06/24 23:59 23:59 23:59 Intake Total 1100 / 1100 3310.00 / 3360.00 1050 / 1050 Output Total 150 / 150 400 / 900 800 / 800 Balance 950 / 950 2910.00 / 2460.00 250 / 250 Lab / Micro Data Attestation: I reviewed the patient's lab results. 07/06/24 05:55 07/06/24 05:55 Labs: Laboratory Results - last 24 hr 07/06/24 05:55: WBC 8.5, RBC 3.08 L, Hgb 8.5 L, Hct 25.9 L, MCV 84.1, MCH 27.6, MCHC 32.8, RDW Std Deviation 43.1, RDW Coeff of Courtney 14.0, Plt Count 222, MPV 9.6, Immature Gran % (Auto) 0.800, Neut % (Auto) 74.4 H, Lymph % (Auto) 15.5 L, [place] % (Auto) 8.5, Eos % (Auto) 0.6, Baso % (Auto) 0.2, Absolute Neuts (auto) 6.3, Absolute Lymphs (auto) 1.31, Nucleated RBC % 0, Atypical Lymphocytes 1+, Sodium 136, Potassium 3.4 L, Chloride 105, Carbon Dioxide 22.0, Anion Gap 9, BUN 6 L, Creatinine 0.48 L, Estim Creat Clear Calc 208.33, Est GFR (MDRD) Af Amer 204, Est GFR (MDRD) Non-Af 168, BUN/Creatinine Ratio 12.6, Glucose 87, Calcium 8.6, Total Bilirubin 0.40, AST 10 L, ALT 16, Alkaline Phosphatase 91, Total Protein 6.0 L, Albumin 1.8 L, Globulin 4.2, Albumin/Globulin Ratio 0.4 L Micro: Microbiology 07/04/24 17:10 Urine, Clean Catch Urine Culture - Final Escherichia coli 07/04/24 17:15 Mucosa - Nose SARS-CoV-2, Influenza & RSV (PCR) - Final Radiography Diagnostic Testing: Radiology Impression Renal Ultrasound 07/05/24 07:56 IMPRESSION: No acute sonographic abnormalities. Reading Location: [facility] Pelvic/Transvag US 07/05/24 08:51 IMPRESSION: 1. Limited exam. 2. Questionable visualization of the right ovary. The measured structure appears homogeneously echogenic and measures up 4.5 cm, which may correspond patient's known dermoid cyst. 3. Otherwise the ovaries are nonvisualized. Reading Location: [facility] Constitutional Constitutional: Reports systems reviewed and no addt'l complaints, except as documented; Denies fever(s) Eyes Eyes: Reports systems reviewed and no addt'l complaints, except as documented ENT HEENT: Reports systems reviewed and no addt'l complaints, except as documented Cardiovascular Cardiovascular: Reports systems reviewed and no addt'l complaints, except as documented Respiratory/Chest Respiratory/Chest: Reports systems reviewed and no addt'l complaints, except as documented Gastrointestinal Gastrointestinal: Reports systems reviewed and no addt'l complaints, except as documented Genitourinary Genitourinary: Reports systems reviewed and no addt'l complaints, except as documented and movement Details: present; Denies burning urination, contractions, difficulty urinating, flank pain or urinary frequency Musculoskeletal Musculoskeletal: Reports systems reviewed and no addt'l complaints, except as documented and back pain Integumentary Integumentary: Reports systems reviewed and no addt'l complaints, except as documented Neurologic Neurologic: Reports systems reviewed and no addt'l complaints, except as documented Psychiatric Psychiatric: Reports systems reviewed and no addt'l complaints, except as documented Endocrine Endocrinology: Reports systems reviewed and no addt'l complaints, except as documented Hematologic/Lymphatic Hematologic/Lymphatic: Reports systems reviewed and no addt'l complaints, except as documented Allergic/Immunologic Allergic/Immunologic: Reports systems reviewed and no addt'l complaints, except as documented Physical Exam Const alert and oriented x3 Neck full ROM Resp normal respiratory effort, no retractions and no use of accessory muscles GI normal to inspection, nondistended, normoactive bowel sounds, soft to palpation and non-tender Inspection: gravid Back/Spine no CVA tenderness and normal ROM Extremity normal to inspection and no calf tenderness Skin no rashes or lesions noted Neuro moves all extremities NST FHR Rate Baby A Baseline: 125 Variability:: Moderate Accelerations:: 15 x 15 Decelerations:: None NST Reactive:: Yes Uterine Activity:: none Assessment & Plan (1) : COMMENT: carrier and genetic screening declined. patient was dismissed from [facility] for non-compliance. Seeing metal leaf layer and planning home . At 32 weeks hospitalized for pyelonephritis. Allowed to re establish with [facility] if compliant with care PLAN: Discussed in depth need of glucose test and growth US if she is going to re establish with [facility]. Ordered on WP (2) Costovertebral angle tenderness: (3) Right lower quadrant pain: (4) Pyelonephritis: PLAN: Macrobid BID x 10 days then daily for the rest of (5) History of PCOS: COMMENT: HgA1C 1 TM Charges/Coding Multi Select Codes Visit Charges Office Visit/Consults: 36652 OV L3 Est 20min Urinary/Genital Urinary/Genital CPT Codes: 95458-03 non-stress test Interp
[2024-07-06] MEDS: Potassium Chloride Oral Tablet 20 MEQ PO (09:37)
[2024-07-06] MEDS: NORMAL SALINE 0.9% IV (11:13)
[2024-07-06] MEDS: AZTREONAM IV (11:13)
== END 2024-07-06 12:58 | disposition home or self-care (01) | DRG 831 ==
LOC: WPOUT 11:45 → WP 07-06 07:07
PROVIDERS: Admitting Provider Obstetrics & Gynecology; PCP Family Medicine; Visit Provider Obstetrics & Gynecology
DX: O23.03 Infections of kidney in pregnancy, third trimester (principal); O41.1230 Chorioamnionitis, third trimester, not applicable or unspecified; N13.30 Unspecified hydronephrosis; N12 Tubulo-interstitial nephritis, not specified as acute or chronic; O99.613 Diseases of the digestive system complicating pregnancy, third trimester; Z3A.32 32 weeks gestation of pregnancy; Z87.440 Personal history of urinary (tract) infections
CPT/HCPCS: 36415; 59025; 59050; 76705; 76770; 76830; 76856; 80053; 81002; 82565; 82570; 84156; 84450; 84460; 84550; 85025; 85027; 87077; 87086; 87088; 87186; 87631; 99221; J1756; A4216; G0378

== ENCOUNTER → 2024-07-20 | Outpatient (CLI) | payer SELFPAY | END | disposition home or self-care (01) | PROVIDERS: PCP Family Medicine; Referring Provider Obstetrics & Gynecology; Visit Provider Obstetrics & Gynecology | DX: O23.41 Unspecified infection of urinary tract in pregnancy, first trimester (principal); N12 Tubulo-interstitial nephritis, not specified as acute or chronic; Z3A.00 Weeks of gestation of pregnancy not specified | CPT/HCPCS: 87086; 87088 ==